=== PATIENT | female | born 1925 | race Caucasian/White ===

== ENCOUNTER 2016-05-12 10:42 | Emergency (ER) | payer MEDICARE, BC ==
[~2016-05-12 10:42] MED LIST: CARVEDILOL12.5 MG PO; FUROCOT20 MG PO; IMDUR ER30 MG PO; KLOR-CON 1010 MEQ PO; LEVOTHYROXIN0.025 MG PO; LEVOTHYROXINE0.05 MG PO; LOSARTAN POTASS1 TA2 PO; LOSARTAN POTASS1 TA3 PO; NORCO 325 MG-51 TAB PO; PEPCID 20MG TAB20 MG PO; RITE AID ASPIRI81 M1 PO; ULTRAM 50MG TAB50 MG PO; XANAX0.5 MG PO; ZOLOFT 50MG50 MG PO
[2016-05-12] MEDS ORDERED: TYLENOL 500MG500 MG PO (10:59)
[2016-05-12] MEDS ORDERED: FLECTOR1 EACH TD (11:34)
[2016-05-12 11:37] VITALS: BP 186/69
== END 2016-05-12 11:38 | disposition home or self-care (01) ==
LOC: ED 10:42
DX: M21.612 Bunion of left foot (principal)

== ENCOUNTER → 2016-06-23 | Outpatient (CLI) | payer MEDICARE, BC ==
[~2016-06-23] MED LIST changes: +FLECTOR1 EACH TD; +TYLENOL 500MG500 MG PO
== END ==
LOC: RAD 13:44
DX: Z13.820 Encounter for screening for osteoporosis (principal); M81.0 Age-related osteoporosis without current pathological fracture